=== PATIENT | female | born 1995 | race Caucasian/White ===

== ENCOUNTER 2024-02-15 22:47 | Inpatient (IN) | payer BC, MEDICAID ==
[~2024-02-15 22:47] MED LIST: Iopamidol-370 76% 500 ML MDV (1 ML CHARGE) ONE
[2024-02-15] MEDS ORDERED: methylPREDNISolone Sod Succ/PF 125 MG/2 ML VIAL ONE (23:32)
[2024-02-15] MEDS ORDERED: Ipratropium/Albuterol 3 ML NEB ONE ×2 (23:38→23:44)
[2024-02-15 23:54] LABS: #Basophils 0.07 10x3/uL (0.0-0.2); %Basophils 0.5 % (0.0-1.0); %Lymphocytes 15.4 % (21.0-51.0); %Monocytes 8.7 % (0.0-10.0); %Neutrophils 70.2 % (42.0-75.0); Hemoglobin 12.3 g/dL (12.0-16.0); Mean Corpuscular HGB CONC 31.5 g/dL (32.0-36.0); Mean Corpuscular Hemoglobin 22.2 pg (27.0-31.0); Mean Corpuscular Volume 70.3 fL (78.0-98.0); Mean Platelet Volume 9.9 fL (7.4-10.4); Platelet Count 418 10x3/uL (130-400); RBC Distribution Width 16.3 % (11.5-14.5); Red Blood Cell (RBC) Count 5.55 mill/uL (4.20-5.40)
[2024-02-16] MEDS ORDERED: Magnesium 2 GM/50 ML BAG (IN WATER) ONE (00:02)
[2024-02-16 00:17] LABS: Platelet Adequacy Comment Platelets Normal; Polychromasia SLIGHT = 2-3 cells HPF (0-2)
[2024-02-16 00:21] LABS: ALT (SGPT) 10 U/L (8-55); AST (SGOT) 11 U/L (5-34); Albumin 3.3 g/dL (3.5-5.0); Alkaline Phosphatase 59 U/L (40-110); Anion Gap 15 mmol/L (10-20); BUN (Urea Nitrogen) 7 mg/dL (7.0-18.7); Bilirubin, Total 0.2 mg/dL (0.2-1.2); Calc. Creatinine Clearance 0 mL/min (70-130); Calcium 9.5 mg/dL (7.8-10.44); Carbon Dioxide 23 mmol/L (22-29); Chloride 106 mmol/L (98-107); Estimated GFR 113; Globulin 3.6 g/dL (2.4-3.5); Glucose 114 mg/dL (70-105); Lipase 12 U/L (8-78); Potassium 3.7 mmol/L (3.5-5.1); Protein, Total 6.9 g/dL (6.0-8.3); Sodium 140 mmol/L (136-145)
[2024-02-16 00:25] LABS: Troponin I Less than 0.010 ng/mL (< 0.028)
[2024-02-16 00:32] LABS: BHCG - Serum Negative (NEGATIVE); Pregs Control Background? CLEAR/WHITE (CLR/WHITE); Pregs Control Bar Appear? YES (CONTROL BAR)
[2024-02-16] MEDS ORDERED: Azithromycin 500 MG VIAL ONE (00:57)
[2024-02-16] MEDS ORDERED: cefTRIAXone (ROCEPHIN) 2 GM VIAL ONE (00:57)
[2024-02-16] MEDS ORDERED: Sodium Chloride 0.9% 100 ML ONE (00:57)
[2024-02-16 01:06] LABS: Bacteria/HPF None Seen HPF (None Seen); Bilirubin Negative (Negative); Blood, Urine Negative (Negative); CAUTI Indications for Culture Fever or rigors; Clarity Clear (Clear); Glucose, Urine (Dipstick) Normal (Negative); Ketone, Urine Negative (Negative); Leukocyte Negative Leu/uL (Negative); Nitrite Negative (Negative); Protein, Urine (Dipstick) Negative (Neg-Trace); RBC/HPF 0-3 HPF (0-3); Specific Gravity, Urine 1.028 (1.002-1.036); Squamous Epithelial 0-3 HPF (0-3); Urobilinogen Normal mg/dL (Less than 2); WBC/HPF 0-3 HPF (0-3); pH, Urine 5.5 (5.0-9.0)
[2024-02-16 01:10] LABS: Urine Culture Reflex No No
[2024-02-16] MEDS ORDERED: Ondansetron PF 4 MG/2 ML Vial IVP PRN ×2 (02:00→02:59)
[2024-02-16] MEDS ORDERED: Ondansetron ODT 4 MG TAB SL PRN (02:00)
[2024-02-16] MEDS ORDERED: Acetaminophen 325 MG TAB PO PRN ×2 (02:00→02:59)
[2024-02-16] MEDS ORDERED: Sodium Chloride 0.9% 1,000 ML IV SCH (02:00)
[2024-02-16] MEDS ORDERED: Guaifenesin DM 100-10/5 ML UDCUP PO PRN (02:59)
[2024-02-16] MEDS ORDERED: Albuterol 2.5 MG (3 mL) NEB NEB PRN (03:03)
[2024-02-16 03:28] VITALS: BMI 46.1
[2024-02-16] MEDS: Enoxaparin 40 MG (0.4 mL) SYRINGE SC SCH (03:58)
[2024-02-16] MEDS: methylPREDNISolone Sod Succ 40 MG VIAL IVP SCH (05:41)
[2024-02-16 06:10] LABS: #Basophils Less than 0.03 10x3/uL (0.0-0.2); #Eosinphils Less than 0.03 10x3/uL (0.0-0.7); %Basophils 0.2 % (0.0-1.0); %Eosinophils 0.2 % (0.0-10.0); %Lymphocytes 5.5 % (21.0-51.0); %Monocytes 0.8 % (0.0-10.0); %Neutrophils 93.1 % (42.0-75.0); Hematocrit 40.3 % (36.0-47.0); Hemoglobin 12.2 g/dL (12.0-16.0); Mean Corpuscular HGB CONC 30.3 g/dL (32.0-36.0); Mean Corpuscular Volume 72.6 fL (78.0-98.0); Mean Platelet Volume 10.1 fL (7.4-10.4); Platelet Count 418 10x3/uL (130-400); RBC Distribution Width 16.5 % (11.5-14.5); Red Blood Cell (RBC) Count 5.55 mill/uL (4.20-5.40)
[2024-02-16 06:36] LABS: Legionella Urinary Ag Negative (Negative); Strep pneumo Urine Ag NEGATIVE (NEGATIVE)
[2024-02-16 06:48] LABS: Anisocytosis SLIGHT = 6-15 cells HPF (0-5); Microcytosis SLIGHT = 6-15 cells HPF (0-5); Platelet Adequacy Comment Platelets Normal; Polychromasia SLIGHT = 2-3 cells HPF (0-2)
[2024-02-16 07:11] LABS: Anion Gap 12 mmol/L (10-20); BUN (Urea Nitrogen) 8 mg/dL (7.0-18.7); Calc. Creatinine Clearance 224 mL/min (70-130); Calcium 9.3 mg/dL (7.8-10.44); Carbon Dioxide 23 mmol/L (22-29); Chloride 107 mmol/L (98-107); Estimated GFR 113; Glucose 213 mg/dL (70-105); Potassium 3.9 mmol/L (3.5-5.1); Sodium 138 mmol/L (136-145)
[2024-02-16] MEDS: Ipratropium/Albuterol 3 ML NEB NEB SCH (07:37)
[2024-02-16] MEDS: Famotidine 20 MG TAB PO SCH (08:35)
[2024-02-16] MEDS ORDERED: DULoxetine 60 MG CAP PO SCH (09:00)
[2024-02-16] MEDS ORDERED: Propranolol 10 MG TAB PO PRN (09:08)
[2024-02-16] MEDS: Pantoprazole DR 40 MG TAB PO SCH (10:11)
[2024-02-16] MEDS: Meloxicam 7.5 MG TAB PO PRN (10:11)
[2024-02-16] MEDS: Propranolol 10 MG TAB PO SCH (10:11)
[2024-02-16 11:13] VITALS: BMI 46.1
[2024-02-16 15:59] VITALS: BP 127/62; TEMP 98.1
[2024-02-16] MEDS ORDERED: Enoxaparin 40 MG (0.4 mL) SYRINGE SC SCH (21:00)
[2024-02-17] MEDS ORDERED: cefTRIAXone\\ROCEPHIN 1 GM in Sodium Chloride 0.9% 100 ML IVPB SCH (01:00)
[2024-02-17] MEDS ORDERED: Azithromycin 500 MG in Sodium Chloride 0.9% 250 ML 250 ML IVPB SCH (02:00)
[2024-02-17] MEDS ORDERED: DULoxetine 20 MG CAP PO SCH (09:00)
== END 2024-02-16 18:34 | disposition home or self-care (01) | DRG 193 ==
LOC: ERS 22:47 → T4-B 02-16 01:42
PROVIDERS: ADMIT Internal Medicine; ATTEND Hospitalist
DX: J18.9 Pneumonia, unspecified organism (principal); J96.01 Acute respiratory failure with hypoxia; F84.0 Autistic disorder; J45.901 Unspecified asthma with (acute) exacerbation; K21.9 Gastro-esophageal reflux disease without esophagitis; F41.9 Anxiety disorder, unspecified; F17.290 Nicotine dependence, other tobacco product, uncomplicated; R56.9 Unspecified convulsions; Z88.8 Allergy status to other drugs, medicaments and biological substances; Z79.899 Other long term (current) drug therapy; Z90.49 Acquired absence of other specified parts of digestive tract
CPT/HCPCS: 36415; 71275; 80048; 80053; 81001; 83690; 83735; 83880; 84484; 84703; 85025; 87040; 87449; 87899; 93005; 94640; 94760; J0456; J0696; J1650; J2920; J2930; J3475; J3490; J7620; Q9967